=== PATIENT | female | born 1950 | race Caucasian/White ===

== ENCOUNTER → 2021-11-03 | Outpatient (CLI) | payer MEDICARE ==
[2021-11-04 14:28] LABS: Stool Occult Bld Immuno 1 Negative (NEGATIVE)
== END | disposition home or self-care (01) ==
LOC: LAB SHORT 11:00 → LAB 11:00
PROVIDERS: Family Medicine
DX: Z12.11 Encounter for screening for malignant neoplasm of colon (principal)
CPT/HCPCS: G0328

== ENCOUNTER 2024-07-18 11:08 | Inpatient (IN) | payer MEDICARE ==
[~2024-07-18] VITALS: Ht 165.1 cm; Wt 91.0 kg
[2024-07-18] VITALS (12 sets, daily range): BP systolic 124–193; BP diastolic 75–99
[2024-07-18 11:29] LABS: Calcium, Ionized (POC) 1.21 mmol/L (1.10-1.46); Chloride (POC) 102 mmol/L (98-108); Creatinine (POC) 0.7 mg/dL (0.6-1.0); Glucose (ISTAT POC) 139 mg/dL (70-99); Hemoglobin (POC) 14.3 g/dL (12.0-16.0); Potassium (POC) 3.9 mmol/L (3.5-5.5); Sodium (POC) 140 mmol/L (135-148); Total CO2 (POC) 27 mmol/L (21-32)
[2024-07-18] MEDS ORDERED: FentaNYL Citrate 50 MCG/ML 2 ML Injection IV ONE (11:30)
[2024-07-18] MEDS ORDERED: Midazolam HCl 1MG / ML 2ML Vial ONE (11:35)
[2024-07-18] MEDS ORDERED: FentaNYL Citrate 50 MCG/ML 2 ML Injection ONE (11:35)
[2024-07-18] MEDS ORDERED: NS 1,000 ML IV ONE ×2 (11:35→12:49)
[2024-07-18] MEDS ORDERED: Atropine Sulfate 0.1 MG/ML 10ML SYR ONE (11:38)
[2024-07-18] MEDS ORDERED: Phenylephrine HCl 100 MCG/ML-NS 10MLSYR (1MG/10ML) ONE (11:38)
[2024-07-18 11:47] LABS: BASOPHILS ABSOLUTE AUTO 0.08 K/mm3 (0.00-0.23); BASOPHILS PERCENT AUTO 1 % (0-2); EOSINOPHILS ABSOLUTE AUTO 0.11 K/mm3 (0.00-0.68); EOSINOPHILS PERCENT AUTO 1 % (0-6); Hematocrit 41.6 % (33.0-51.0); Hemoglobin 13.7 g/dL (11.5-16.0); IMMATURE GRAN ABSOLUTE AUTO 0.06 K/mm3 (0.00-0.10); IMMATURE GRAN PERCENT AUTO 1 % (0-1); LYMPHOCYTES ABSOLUTE AUTO 1.82 K/mm3 (0.84-5.20); LYMPHOCYTES PERCENT AUTO 15 % (21-46); MONOCYTES ABSOLUTE AUTO 0.58 K/mm3 (0.16-1.47); MONOCYTES PERCENT AUTO 5 % (4-13); Mean Corpuscular HGB 28.3 pg (26.0-34.0); Mean Corpuscular HGB Conc 32.9 g/dL (31.5-36.5); Mean Corpuscular Volume 86 fL (80-100); Mean Platelet Volume 9.4 fL (9.1-12.4); NEUTROPHILS ABSOLUTE AUTO 9.74 K/mm3 (1.96-9.15); NEUTROPHILS PERCENT AUTO 79 % (41-73); Platelet Count 271 K/mm3 (150-400); RDW Coefficient Variation 13.2 % (11.7-14.2); RDW Standard Deviation 41.4 fL (35.1-46.3); Red Blood Cell Count 4.84 M/mm3 (3.80-5.20); White Blood Cell Count 12.39 K/mm3 (4.00-11.30)
[2024-07-18] MEDS ORDERED: Tirofiban HCL Monohydrate 3.75 MG/15 ML Vial ONE (11:47)
[2024-07-18 11:58] LABS: Anti-Xa UFH, PHA Monitoring <0.10 IU/mL; International Normalized Ratio 0.93
[2024-07-18 12:15] LABS: Albumin, Blood 3.5 g/dL (3.4-5.0); Albumin/Globulin Ratio 1.1 (0.8-1.8); Bilirubin, Total 0.6 mg/dL (0.1-1.0); Bun/Creatinine Ratio 12.8 (12.0-20.0); Calcium, Blood 9.1 mg/dL (8.5-10.1); Creatinine, Blood 0.7 mg/dL (0.40-1.00); Globulin, Blood 3.2 g/dL (2.2-4.0); Potassium, Blood 3.8 mmol/L (3.5-5.5); Total Protein, Blood 6.7 g/dL (6.4-8.2)
[2024-07-18] MEDS ORDERED: Ticagrelor 90 MG TABLET PO ONE ×2 (12:45→18:46)
[2024-07-18] MEDS ORDERED: Nitroglycerin 2 MG/20 ML BTL ONE (12:49)
[2024-07-18] MEDS ORDERED: Verapamil HCL 2.5 MG/ML 2ML Injection ONE (12:49)
[2024-07-18] MEDS ORDERED: NS 250 ML IV ONE (12:49)
[2024-07-18] MEDS ORDERED: Heparin Sodium 1000 Units/ML 10ML MDV ONE (12:49)
[2024-07-18] MEDS ORDERED: FLU VACC TS2024-25(6MOS UP)/PF 45 MCG/0.5 ML SYRINGE IM SCH (13:35)
[2024-07-18] MEDS ORDERED: METO100ER PO (13:45)
[2024-07-18] MEDS ORDERED: METO50 PO (13:46)
[2024-07-18] MEDS ORDERED: Prinivil10 MG PO (13:47)
[2024-07-18] MEDS ORDERED: AmLODIPine Besylate 5 MG Tab PO ONE (14:10)
[2024-07-18] MEDS ORDERED: HydrALAZINE HCl 20 MG / ML 1ML Vial IV PRN (14:20)
[2024-07-18] MEDS ORDERED: Isosorbide Mononitrate 30 MG TABCR PO SCH (15:00)
[2024-07-18] MEDS ORDERED: Acetaminophen 325 MG TABLET PO PRN (15:00)
[2024-07-18] MEDS ORDERED: Vancomycin HCL 2,000 MG in NS 500 ML IV ONE (16:30)
--- NOTE | 2024-07-18 17:05 | NUR ---
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 Alert & oriented. In NSR in 60s. Blood pressures elevated with SBP as high as 190. Discussed with Dr. Freeman. See eMAR for orders. Current BP 124/76. At 1600, she had some dysarthria. Otherwise NIH was negative. Equal strength/sensation/no facial droop. Spoke with MD once again & she was taken for stat head CT. Upon return to unit, she expressed resolution of symptoms. Purewick in place with clear yellow urine. registered pharmacy technician currently at bs. PIV x2 in place. R radial PCI site clean/dry/intact with good sensation/cap refill. No hematoma or bleeding. Will continue to monitor. Updated patient on plan of care.
[2024-07-18] MEDS ORDERED: Heparin Sodium,Porcine 5,000 UNIT/0.5 ML SDV SC ONE (18:46)
[2024-07-18] MEDS ORDERED: Nitroglycerin 0.4 MG SUBL SL ONE (18:46)
[2024-07-18] MEDS ORDERED: Aspirin 81 MG Chew PO ONE (18:46)
--- NOTE | 2024-07-18 20:55 | NUR ---
ASSUMPTION OF CARE: ASSUMED CARE OF PT AT 1900. PT ALERT AND ORIENTED, FOLLOWS DIRECTION AND MAKES NEEDS KNOWN. PT ON RA WITH SPO2 MID 90'S, DENIES SOB. LUNGS CLEAR. 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 SBP 140-150'S. DENIES CP/PRESSURE. TR BAND SITE TO RIGHT WRIST SHOWS NO SIGNS OF OOZING OR HEMATOMA. OBSITE C/D/I. ARMBOARD IN PLACE. PIV TO LAC AND RAC BOTH PATENT AND SALINE LOCKED. PUREWICK IN PLACE DRAINING YELLOW URINE TO SUCTION. NO BM YET. PT TOLERATING PO INTAKE WITH NO GI UPSET. DENIES N/V OR PAIN T/O. BED LOW AND LOCKED, CALL LIGHT IN REACH.
[2024-07-18] MEDS ORDERED: Atorvastatin 40 MG Tab PO SCH (21:00)
[2024-07-18] MEDS ORDERED: Metoprolol Tartrate 50 MG Tab PO SCH (21:00)
[2024-07-18] MEDS ORDERED: Ticagrelor 90 MG TABLET PO SCH (21:00)
[2024-07-19] VITALS (15 sets, daily range): BP systolic 121–155; BP diastolic 67–89
[2024-07-19] MEDS ORDERED: Melatonin 5 MG Tablet PO PRN (00:05)
[2024-07-19] MEDS ORDERED: Melatonin 5 MG Tablet PO ONE (00:05)
[2024-07-19 03:52] LABS: BASOPHILS ABSOLUTE AUTO 0.05 K/mm3 (0.00-0.23); BASOPHILS PERCENT AUTO 0 % (0-2); EOSINOPHILS PERCENT AUTO 1 % (0-6); Hematocrit 36.8 % (33.0-51.0); Hemoglobin 12.6 g/dL (11.5-16.0); IMMATURE GRAN ABSOLUTE AUTO 0.06 K/mm3 (0.00-0.10); IMMATURE GRAN PERCENT AUTO 0 % (0-1); LYMPHOCYTES ABSOLUTE AUTO 1.89 K/mm3 (0.84-5.20); LYMPHOCYTES PERCENT AUTO 12 % (21-46); MONOCYTES ABSOLUTE AUTO 1.16 K/mm3 (0.16-1.47); MONOCYTES PERCENT AUTO 8 % (4-13); Mean Corpuscular HGB 28.6 pg (26.0-34.0); Mean Corpuscular HGB Conc 34.2 g/dL (31.5-36.5); Mean Corpuscular Volume 84 fL (80-100); Mean Platelet Volume 9.3 fL (9.1-12.4); NEUTROPHILS PERCENT AUTO 79 % (41-73); Platelet Count 238 K/mm3 (150-400); RDW Coefficient Variation 13.4 % (11.7-14.2); RDW Standard Deviation 40.9 fL (35.1-46.3); White Blood Cell Count 15.36 K/mm3 (4.00-11.30)
[2024-07-19 04:22] LABS: Albumin, Blood 3.1 g/dL (3.4-5.0); Albumin/Globulin Ratio 1.1 (0.8-1.8); Bilirubin, Total 0.7 mg/dL (0.1-1.0); Bun/Creatinine Ratio 11.2 (12.0-20.0); Calcium, Blood 8.8 mg/dL (8.5-10.1); Creatinine, Blood 0.62 mg/dL (0.40-1.00); Globulin, Blood 2.8 g/dL (2.2-4.0); Potassium, Blood 3.4 mmol/L (3.5-5.5); Total Protein, Blood 5.9 g/dL (6.4-8.2)
[2024-07-19] MEDS ORDERED: Potassium Chloride 20 MEQ TabCR PO ONE (04:35)
--- NOTE | 2024-07-19 06:06 | NUR ---
SHIFT SUMMARY: NO ACUTE CHANGES OVERNIGHT. NEURO STATUS UNCHANGED. MEDICATED WITH PRN TYLENOL FOR MILD HEADACHE. REMAINS ON RA, ENDORSES SOB OCCASIONALLY WITH ACTIVITY. REMAINS ON ADMITTING SUPERVISOR, SR WITH HR 60-70'S. SBP 130-150. NO C/O CHEST PAIN T/O THE SHIFT. TR BAND SITE TO RIGHT RADIAL CONTINUES TO SHOW NO SIGNS OF HEMATOMA OR BLEEDING. ARMBOARD IN PLACE. SL THIS SHIFT. PIVS INTACT. PUREWICK CONTINUES TO SUCTION. NO BM THIS SHIFT. TOLERATING PO INTAKE. ABLE TO SLEEP T/O THE NIGHT. BED LOW AND LOCKED, CALL LIGHT IN REACH.
[2024-07-19] MEDS ORDERED: Lisinopril 10 MG Tab PO SCH (09:00)
[2024-07-19] MEDS ORDERED: AmLODIPine Besylate 5 MG Tab PO SCH (09:00)
[2024-07-19] MEDS ORDERED: Aspirin 81 MG Chew PO SCH (09:00)
[2024-07-19] MEDS ORDERED: Irbesartan 150 MG Tab PO SCH (09:00)
[2024-07-19] MEDS ORDERED: Potassium Chloride 20 MEQ TabCR PO SCH (10:00)
[2024-07-19] MEDS ORDERED: Isosorbide Mono30 MG PO (15:26)
[2024-07-19] MEDS ORDERED: BRILINTA90 M1 PO (15:26)
[2024-07-19] MEDS ORDERED: POTA10T PO (15:27)
[2024-07-19] MEDS ORDERED: ATOR40TA PO (15:27)
[2024-07-19] MEDS ORDERED: IRBE150 PO (15:29)
[2024-07-19] MEDS ORDERED: ASPI81CH PO (15:59)
[2024-07-19] MEDS ORDERED: AMLO10 PO (16:21)
--- NOTE | 2024-07-19 17:13 | NUR ---
DISCHARGE NOTE 1616 - DISCHARGE PAPERWORK REVIEDED WITH PATIENT AND DAUGHTER. EDUCATION PROVIDED INCLUDED, BUT NOT LIMITED TO, DIAGNOSIS, INTERVENTION, CORONARY STENT, AFTER CARE, FOLLOW UP APPTS, NEW MEDICATIONS, DISCONTINUED MEDICATIONS, CARDIAC REHAB, AND S/S TO NOTIFY PROVIDER, RETURN TO ER/CALL 911. KS AND STROKE EDUCATION PROVIDED WELL RISK FACTORS REVIEWED. PT AND FAMILY MEMBER INTERESTED, RECEPTIVE, INVOVLED, AND KNOWLEGABLE. VERBALIZED UNDERSTANDING, NO FURTHER QUESTIONS AT THIS TIME. PRESCRIPTIONS SENT AND CONFIRMED TO [facility]. PT AND FAMILY MEMBER ESCORTED TO POV WITH ALL PERSONAL BELONGINGS, ACCOMPANIED BY CIGARETTE FILTER INSPECTOR.
[2024-07-19] MEDS ORDERED: Vancomycin HCL 1,500 MG in NS 250 ML IV SCH (18:00)
== END 2024-07-19 16:40 | disposition home or self-care (01) | DRG 322 ==
LOC: ER 11:08 → ICUE 11:44
PROVIDERS: Student in an Organized Health Care Education/Training Program; ADMIT Hospitalist
PROC: 027034Z Dilation of Coronary Artery, One Artery with Drug-eluting Intraluminal Device, Percutaneous Approach (ICD-10-PCS; principal; 2024-07-18)
PROC: B2111ZZ Fluoroscopy of Multiple Coronary Arteries using Low Osmolar Contrast (ICD-10-PCS; 2024-07-18)
PROC: 4A023N7 Measurement of Cardiac Sampling and Pressure, Left Heart, Percutaneous Approach (ICD-10-PCS; 2024-07-18)
DX: I21.09 ST elevation (STEMI) myocardial infarction involving other coronary artery of anterior wall (principal); G45.9 Transient cerebral ischemic attack, unspecified; I11.9 Hypertensive heart disease without heart failure; E78.5 Hyperlipidemia, unspecified; I25.10 Atherosclerotic heart disease of native coronary artery without angina pectoris; E55.9 Vitamin D deficiency, unspecified; M85.80 Other specified disorders of bone density and structure, unspecified site; Z79.82 Long term (current) use of aspirin; Z79.899 Other long term (current) drug therapy; R47.1 Dysarthria and anarthria
CPT/HCPCS: 36415; 70450; 76937; 80047; 80053; 84484; 85014; 85025; 85347; 85520; 85610; 92920; 92921; 93454; 99152; 99153; A9270; C1725; C1769; C1874; C1887; C1894; C8929; C9606; J0461; J1644; J2250; J2371; J3010; J3246; J3370; J7030; J7040; J7050; Q9957; Q9967